=== PATIENT | male | born 1990 | race Caucasian/White ===

== ENCOUNTER 2022-09-21 19:35 | Emergency (ER) | payer OTHER ==
[2022-09-21 20:23] VITALS: BP 122/73; PULSE 90; RESP 16; TEMP 99.9; BMI 25.1
[2022-09-21] MEDS ORDERED: ACETAMINOPHEN 500 MG TABLET (FP) PO ONE (20:30)
[2022-09-21] MEDS ORDERED: ACETAMINOPHEN 325 MG TABLET (FP) ONE (20:36)
[2022-09-21 20:44] LABS: HEMATOCRIT 36.5 % (35.4-49); HEMOGLOBIN 12.5 G/dL (11.7-16.9); MCH 31.8 pg (25.7-33.7); MCHC 34.1 g/dl (32.0-35.9); MEAN CELL VOLUME 93.2 fl (80-96); MEAN PLT VOLUME 7.8 fl (7.5-11.1); PLATELET COUNT 272.4 10^3/uL (134-434); RBC 3.92 10^6/uL (4.00-5.60); RDW 14.8 % (11.9-15.9); WHITE BLOOD COUNT 12.7 10^3/uL (4.0-10.8)
[2022-09-21] MEDS ORDERED: AZITHROMYCIN 500 MG TABLET PO ONE (20:53)
[2022-09-21 20:55] LABS: ALBUMIN 2.9 g/dl (3.4-5.0); BILIRUBIN,TOTAL 0.7 mg/dl (0.2-1); CALCIUM 8.5 mg/dl (8.5-10); CREATININE 0.9 mg/dl (0.55-1.3); POTASSIUM 3.3 mmol/L (3.5-5.1); TOT PROT 6.6 g/dl (6.4-8.2)
[2022-09-21] MEDS ORDERED: AZITHROMYCIN 500 MG TABLET ONE (20:59)
== END 2022-09-21 21:13 | disposition home or self-care (01) ==
LOC: FER 19:35
DX: J20.9 Acute bronchitis, unspecified (principal); J11.2 Influenza due to unidentified influenza virus with gastrointestinal manifestations; J02.9 Acute pharyngitis, unspecified; R05.1 Acute cough; R09.81 Nasal congestion; B34.9 Viral infection, unspecified
CPT/HCPCS: 36415; 71046-TC-FY; 80053; 85027; 86308; 99283-25